=== PATIENT | male | born 1975 | race Two or more races ===

== ENCOUNTER 2022-09-07 22:08 | Emergency (ER) | payer SELFPAY ==
[~2022-09-07] VITALS: Ht 177.8 cm; Wt 134.8 kg
[2022-09-07] MEDS ORDERED: CEPH250T PO (23:21)
[2022-09-07] MEDS ORDERED: HYDROcodone/acetaminophen 5mg/325mg tablet PO ONE (23:30)
[2022-09-07 23:45] VITALS: BP 185/89
== END 2022-09-07 23:52 | disposition home or self-care (01) ==
LOC: ER 22:09
DX: L60.0 Ingrowing nail (principal); G89.29 Other chronic pain; M54.50 Low back pain, unspecified; Z91.018 Allergy to other foods
CPT/HCPCS: 11730; 99284